=== PATIENT | male | born 1940 | race Caucasian/White ===

== ENCOUNTER 2025-04-25 00:19 | Emergency (ER) | payer MEDICARE, SELFPAY ==
--- OUTSIDE RECORDS SUMMARY | 2025-04-25 00:22 | XMS_ITS | Clinical Summary ---
Author Organization [facility] Address [address] [place] [id number] Care Team Providers Care Supervisor [employer] Name Role Phone Silas Cooper MD Primary Care Provider [phone] Allergies Active Allergy Reactions Criticality Noted Date Comments Sulfa (Sulfonamide Antibiotics) Tongue Swelling High 01/09/2007 closing of throat Medications losartan (COZAAR) 50 mg tabletIndications :Essential hypertension Take 1 Tablet (50 mg) by mouth once daily. 90 Tablet 4 4 Active Xarelto 20 mg tabletIndications :Atrial fibrillation, unspecified type (HC) TAKE ONE TABLET BY MOUTH ONE TIME DAILY with evening meal. 90 Tablet 5 Active Active Problems Problem Noted Date Diagnosed Date Essential hypertension 10/27/2020 Chest pain, unspecified 03/13/2011 Overview (03/13/2011): Colonoscopy 03/2011 polyp repeat in 5 years Colon polyp 03/13/2011 Overview (11/07/2021): Colonoscopy 03/2011 polyp repeat in 5 years Colonoscopy 06/2016 polyp repeat in 5 years Colonoscopy 10/2021 ilial erosion, no polyps, no follow up colonoscopy needed Sensorineural hearing loss, bilateral 09/20/2010 Displacement of lumbar inter vertebral disc without myelopathy 06/14/2008 Encounters Date Type Department Care Team Description 04/24/2025 Nurse Triage [facility] [address] [facility] [place] [address] Silas Cooper MD 01/28/2025 Refill [facility] [address] [place] [address] Silas Cooper MD Refill Request (Xarelto) from Last 3 Months Immunizations Immunization Administration Dates Next Due AMB INFLUENZA IIV3 (AGE 65+ YRS) PF (Flu Clinic Only) 05/21/2019,06/03/2018,05/02/2017 AMB Influenza, IIV3 (Age >=3 years)(Flu Clinic Only) 05/11/2013,04/27/2012,06/01/2010,06/02 Amb Influenza, Inact (High-d ose) (Flu Clinic Only) 05/31/2016,05/10/2014 Amb Influenza, Inactivated A IIV4 (Age 65+ Years) Preserv Free 05/17/2020 COVID-19 vaccine (QingCloud NTZOCKO 30mcg/0.3mL) PF, MDV 10/17/2020,09/26/2020 HepA-HepB (Twinrix) 03/17/2009 Hepatitis A (Adult) 04/22/2005 Inactivated Polio Vaccine 01/16/2012,04/22/2005 Influenza, High-dose Inactivated 05/31/2016,1009/2014,05/10/2014 Influenza, High-dose Quadriv alent Inactivated 04/25/2022,05/23/2021 Influenza, IIV3 (Age 6-35 mos) 04/25/2011 Influenza, IIV3 (Age >=3 years) 05/11/20 13,04/27/2012,04/25/2011,06/01,06/02/2008,06/11/2006,05/28/2005 Influenza, Inactivated IIV3 (Age 65+ Years) Preserv Free 05/02/2017 Meningococcal Vaccine (Menactra) 03/17/2009 Pneumococcal Poly,23-Valent (Pneumovax) 07/17/2006,07/11/2005,04/22/2005 Pneumococcal conj 13-Valent (Prevnar 13) 09/23/2017 Td (Age >=7 Years) 04/22/2005 Td, Preservative Free (age >= 7 Years) 5 Tdap 01/16/2012 Typhoid (injectable) 01/16/2012,03/17/2009 Typhoid (oral) 04/22/2005 Zoster (Shingrix-RZV, recombinant) 01/15/2019, Family History Medical History Relation Name Comments Cancer-prostate Brother 1 Ganga of pros sánchez ca in 60s Asthma Brother 2 Christopher Other Brother 2 Christopher of a resp attack at 82 Stroke Father of a strok e at 89 Heart Disease Mother of 88 of unknown cause Relation Name Status Comments Brother 1 Ganga Brother 2 Christopher Father Mother Social History Tobacco Use Types Packs/Day Years Used Date Smoking Tobacco: Former Cigarettes Q uit: 11/22/1971 Smokeless Tobacco: Never Tobacco Cessation:Counseling Given: No Alcohol Use Standard Drinks/Week Comments Yes 2 (1 standard drink = 0.6 oz pur e alcohol) occassional glass of wine PHQ-2 Answer Date Recorded PHQ-2 TOTAL SCORE 0 03/31/2024 Social Connections Answer Date Recorded Frequency of Communication with Friends and Fami ly Not on file 11/26/2022 Alcohol Use Answer Date Recorded How often do you have a drink containing alcohol ? 3 02/05/2023 How many drinks containing a lcohol do you have on a typical day when you are drinking? 0 02/05/2023 How often do you have five or more drinks on one occasion? 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 Gender Identity Not on file Sexual Orientation Not on file Obstetrics History Last Filed Vital Signs Vital Sign Reading Time Taken Comments Blood Pressure 126/77 03/31/2024 1:20 PM CDT Pulse 49 03/31/2024 1:20 PM CDT Temperature 36.2 C (97.1 F) 11/21/2021 10:45 AM CDT Respiratory Rate 18 09/09/2019 9:56 AM EMULSIFICATION OPERATOR Oxygen Saturation 97% 03/31/2024 1:20 PM CDT Inhaled Oxygen Concentration - - Weight 78.2 kg (172 lb 6.4 oz) 03/31/2024 1:20 P M CDT Height 177.4 cm (5' 9.84) 03/31/2024 1:20 PM CD T Body Mass Index 24.85 03/31/2024 1:20 PM CDT Plan of Treatment Health Maintenance Due Date Last Done Comments Hepatitis B series for 19+ ( 2 of 3 - Hep B Twinrix 3-dose series) 04/14/2009 03/17/2009 RSV vaccine for adults or (1 - 1-dose 75+ series) 11/03/2015 Tetanus booster 01/15/2022 01/16/2012, 04/11, 04/22/2005 BMI (ht and wt on same day) for age 18+ 03/31/2025 03/31/2024, 02/05/2023, 11/21/2021, Additional history exists Depression screening for age 12+ 03/31/2025 03/31/2024, 02/05/2023, 11/21/2021, Additional history exists Medicare Wellness for age 65+ 04/01/2025, 02/05/2023, 11/21/2021, Additional history exists COVID-19 vaccine series ( season) 2025 10/30/2023, 05/30/2023, 12/23/2022, Additional history exists Influenza Vaccine (#1) 2025 , 05/21/2019, 06/03/2018, Additional history exists Pneumococcal series for age 50+ Completed 09/23/2017, 07/17/2006, 07/11/2005, Additional history exists Zoster (shingles) series for age 50+ Completed 01/15/2019, 10/27/2018 Insurance [employer] HB ONLY [place] [id number] MEDICARE PART B HB ONLY [facility] Advance Directives Documents on File Type Date Recorded Patient Bill Of Lading Clerk Expl anation Healthcare Directive 01/04/2016 3:12 PM MINGO, 12/21/2015 Care Teams Supervisor [employer] Relationship Specialty Start Date End Date [place] [address] PCP - General Family Practice 09/04/20
[2025-04-25 00:25] VITALS: BP 170/94; PULSE 83; RESP 18; TEMP 36.6; O2SAT 98; BMI 24.4
[2025-04-25 00:59] VITALS: TEMP 36.6
[2025-04-25] MEDS: ACETAMINOPHEN 500 MG TABLET 1000 MG PO (00:59)
[2025-04-25 01:10] LABS: Hematocrit* 42.8 % (37.0-53.0); Hemoglobin* 15.0 gm/dL (13.5-17.5); Immature Granulocytes Abs Auto 0.01 K/uL (0.00-0.30); Immature Granulocytes Pct Auto 0.2 %; Lymphocytes Absolute Auto 1.06 K/uL (0.90-2.90); Mean Corpuscular HGB Conc 35 gm/dL (32-36); Mean Corpuscular Hemoglobin 32 pg (26-34); Mean Corpuscular Volume 90 fL (80-100); RDW Coefficient of Variation % 12.3 % (11.5-15.5); Red Blood Count* 4.74 m/uL (4.30-5.90); White Blood Count* 5.28 K/uL (4.50-11.00)
[2025-04-25 01:12] LABS: Slide Review Reflex No
--- NOTE | 2025-04-25 01:13 | ED_ITS ---
HPI - General Adult General Chief complaint: Eye Problems Stated complaint: left eye pain Time Seen by Provider: 04/25/25 00:21 Source: patient Mode of arrival: ambulatory Limitations: no limitations History of Present Illness HPI narrative: 84-year-old male presents to the emergency department with a 2 day history of pain around the left eye. He is very vague and nonspecific when I attempt to redirect him on where the pain exactly is in terms of the conjunctival area, the eyeball, high in the eyeball or more so to the orbital area, it still is not clear to me. He says it is located in the left lateral orbital area radiating around the left side of the head, down into the left posterior ear area and even down a little bit into the back of the left head slightly. It is not affected by movement. He denies loss of vision in that eye. There is no drainage or mattering. No trauma or injury. He does not have a foreign body sensation. He does follow with an eye doctor and has a diagnosis of macular degeneration. He has had his ocular pressure checked within the last couple of months, denies that these were abnormal. He did not attempt to be evaluated in urgent care or clinic for the condition. He tried taking 200 mg tablet of ibuprofen x1 about 7 hours ago with no significant improvement in symptoms. No fevers. No prior history of rheumatological disease or inflammatory condition. He reports that he is prone to migraines but this feels very different for him. It is not a headache deep in the head and seems to be more around the eye area. The right eye is not affected. There is no jaw pain or claudication. No dental pain or fever. He has not tried Tylenol. He that vague on his past medical history but knows that he takes both losartan and Xarelto. He is unclear why he takes Xarelto but when I mention common conditions, he thinks he has a diagnosis of atrial fibrillation. It sounds as though his provider referred him for a lot of additional testing regarding the AFib diagnosis but patient declined to do these. Continues to take his losartan as well. Nonsmoker. No recent surgery. ROS is notable for the HEENT and generalized symptoms as above, otherwise notable for fatigue but he is vague about this also. No other neurological changes. Specifically no loss of visual acuity. Nursing team reports with corrective lenses in place left eye is 20/70 visual acuity. Right eye is unable to read. Please note left eye is the affected eye. 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 ?M51.25 - Other intervertebral disc displacement, thoracolumbar region (ICD- 10) Hypertension ?I10 - Essential (primary) hypertension (ICD-10) Surgical History History of cholecystectomy ?Z90.49 - Acquired absence of other specified parts of digestive tract (ICD- 10) History of tonsillectomy ?Z90.89 - Acquired absence of other organs (ICD-10) History of appendectomy ?Z90.49 - Acquired absence of other specified parts of digestive tract (ICD- 10) Social History Smoking Status: Former smoker Second hand tobacco smoke exposure: No How often do you have a drink containing alcohol: never AUDIT-C Alcohol total score: 0 Non-prescribed substance use: denies use Exam Const: Vital Signs, click to edit/add: Vital Signs - 24 hr 04/25/25 00:25 04/25/25 00:59 Temperature 97.8 F 97.8 F Pulse Rate [Right Pulse Oximeter] 83 Respiratory Rate 18 Blood Pressure [Ri ght Upper Arm] 170/94 H Pulse Oximetry 98 Oxygen Delivery Me thod Room Air Documenting provider has reviewed patient's vital signs: yes Common normals: no apparent distress General appearance: well kempt Other: Friendly and cooperative, talkative HENMT: Common normals: normocephalic, TM's normal bilaterally, moist oral mu cous membranes, oropharynx normal and dentition normal Head and scalp: normocephalic Face and sinus: normal facial exam Tympanic membrane: TM's normal bilaterally Mouth: oral and palatal mucosa normal Other: No tenderness with palpation of the TMJ joint. Jaw opens and closes normally. Normal appearing tongue with no necrosis. Palpation along the caodaism and specifically temporal artery area does cause increased pain. I do not appreciate any specific palpable nodularity. Eye: Common normals: PERRL, EOMs intact bilaterally, conjunctivae normal and no scleral icterus Conjunctiva: conjunctiva(e) normal Pupil: PERRL Other: Sclerae are mildly injected on the left but conjunctiva appear normal bilaterally. Palpation of the globes through the closed eyelid does not reveal any suspicion for increased intra-ocular pressures and does not reproduce his pain. Neck & C-Spine: Common normals: full ROM, no lymphadenopathy and no meningeal signs General: normal visual inspection Cervical spine: cervical ROM normal Resp: Common normals: normal respiratory effort and clear to auscultation bilaterally Effort & inspection: able to speak in complete sentences Auscultation: clear to auscultation bilaterally Cardio: Common normals: regular rate, regular rhythm, S1 normal heart sound and S2 normal heart sound Rate: regular rate Rhythm: regular rhythm Heart sounds: S1 normal and S2 normal Extremity: Common normals: normal to inspection and normal capillary refill Neuro: Common normals: moves all extremities, no focal motor deficits and gait normal Meningeal signs: no meningeal signs Speech: speech normal Psych: Appearance: well kempt Activity/motor behavior: appropriate eye contact Attention/concentration: attention grossly intact Memory/cognition: memory grossly intact Insight: insight good Judgement: judgment good Skin: Common normals: no rashes or lesions noted General skin exam: no rashes or lesions noted Course Course ED Course: 84-year-old male with vague periocular facial symptoms and headache with pain on palpation of temporal artery area. No obvious signs of acute glaucoma, ocular infection or focal neurologic change. Does not have visual acuity worsening of affected side. Baseline macular degeneration does make visual assessment a bit difficult. If some concerns that this is presentation for temporal arteritis based on age, palpable tenderness, deviation from his typical baseline. Counseled patient that it is difficult to tell for sure without a biopsy but impaired treatment is recommended due to the risk of progression to vision loss if untreated. Biopsy can be definitive for diagnosis but can have false negatives as well. Indications for which he takes Xarelto are not quite clear to patient but I do recommend that he continue his Xarelto. Will start pr ednisone 60 mg p.o. x1 here in the ED and continue on 60 mg daily for 6 days, then decrease to 40 mg once daily. Patient will need primary care follow-up in a couple of days to check in to make sure that things are improving, make sure that the General surgery referral and biopsy have been arranged. Patient was given contact numbers to start scheduling those himself. He was also given instructions to contact his eye doctor 1st thing in the morning and make an appointment to have his vision and ocular pressures reassessed. We discussed coming back to emergency department with advanced ophthalmological capabilities if he has sudden or severe ocular symptoms. General alarm symptoms otherwise reviewed and written as well. We are going to draw baseline sed rate, CRP and CBC prior to starting treatment that can be used for comparison. These will be drawn and then he will be sent home from the ED with the prednisone and Tylenol and will be given a few tramadol tablets from InStent meds for severe pain. Counseled on use of Benadryl, melatonin or Unisom as an additional sleep aid [id number] if needed. Vital Signs Vital signs: Initial Vital Signs Temperature 97.8 F 04/25/25 00:25 Temperature Source Temporal Artery Scan 04/25/25 00:25 Pulse Rate 83 04/25/25 00:25 Respiratory Rate 18 04/25/25 00:25 Blood Pressure 170/94 H 04/25/25 00:25 Blood Pressure Mean 119 H 04/25/25 00:25 Blood Pressure Position Sitting 04/25/25 00:25 Pulse Oximetry 98 04/25/25 00:25 Oxygen Delivery Method Room Air 04/25/25 00:25 Vital Signs Temperature 97.8 F 04/25/25 00:25 Pulse Rate 83 04/25/25 00:25 Respiratory Rate 18 04/25/25 00:25 Blood Pressure 170/94 H 04/25/25 00:25 Pulse Oximetry 98 04/25/25 00:25 Oxygen Delivery Method Room Air 04/25/25 00:25 Temperature 97.8 F 04/25/25 00:59 Pulse Rate 83 04/25/25 00:25 Respiratory Rate 18 04/25/25 00:25 Blood Pressure 170/94 H 04/25/25 00:25 Pulse Oximetry 98 04/25/25 00:25 Oxygen Delivery Method Room Air 04/25/25 00:25 Medications Administered Medications: Discontinued Medications Generic Name Dose Route Start Last Admin Trade Name Padma PRN Reason Stop Dose Admin Acetaminophen 1,000 mg 04/25/25 00:53 04/25/25 00:59 Acetaminophen 500 Mg Tablet PO 04/25/25 00:54 1,000 mg ONCE ONE Administration Prednisone 60 mg 04/25/25 00:53 04/25/25 00:58 Prednisone 20 Mg Tablet PO 04/25/25 00:54 60 mg ONCE ONE Administration Medical Decision Making Lab Data Lab results reviewed: Yes I reviewed the patient's lab results Lab results narrative: No significant leukocytosis. Sed rate does remain pending. Labs: Lab Results 04/25/25 Range/Units 01:00 WBC 5.28 (4.50-11.00) K/uL RBC 4.74 (4.30-5.90) m/uL Hgb 15.0 (13.5-17.5) gm/dL Hct 42.8 (37.0-53.0) % MCV 90 (80-100) fL MCH 32 (26-34) pg MCHC 35 (32-36) gm/dL RDW Coeff of Marcie 12.3 (11.5-15.5) % Plt Count 183 (140-440) K/uL Neut % (Auto) 68.0 (42.0-72.0) % Lymph % (Auto) 20.1 (20-44) % Wayne % (Auto) 8.5 (0.0-11.0) % Eos % (Auto) 2.8 (0.0-7.0) % Baso % (Auto) 0.4 (0.0-3.0) % Neut # (Auto) 3.59 (1.7-7.0) K/uL Lymph # (Auto) 1.06 (0.90-2.90) K/uL Wayne # (Auto) 0.40 (0.00-0.90) K/UL Eos # (Auto) 0.15 (0.00-0.50) K/uL Baso # (Auto) 0.02 (0.00-0.30) K/uL Abs Immat Gran (auto) 0.01 (0.00-0.30) K/uL Imm/Tot Granulo (auto) 0.2 % C-Reactive Protein < 0.5 L (0.5-1.0) mg/dL Discharge Plan Discharge Clinical Impression: Temporal arteritis Patient Disposition: Home, Self-Care Condition: Stable Instructions: Temporal Arteritis (ED) Additional Instructions: As we discussed, there does not seem to be an intrinsic problem within the eye itself but I cannot [place] the [place]. You will need to call your eye doctor 1st thing in the morning and get your eyes checked to ensure that there is not a deeper problem within the eye itself. Your history is more suggestive of an inflammatory condition called temporal arteritis. This can cause some pain in the eye itself but tends to cause pain in the left side of the head, caodaism and can radiate down towards the jaw and sometimes behind the ear as well. The condition can progress rapidly and eventually lead to permanent vision loss, therefore empiric treatment when the condition is suspected is important, even prior to getting a formal diagnosis. A biopsy is needed to get formal diagnosis, this cannot be performed in the middle of the night on the weekend in a [place] emergency department. You will need to call the clinic in the morning at [phone]. You will need to request an appointment with the general surgery department. Tell them that the diagnosis is for a temporal artery biopsy. If you have difficulty coordinating this, please speak with your primary care doctor and team to help them coordinate this for you. Please make an appointment with them for this week so we can see how your symptoms are improving on the prednisone as well, deciding on how soon we can taper treatment if things are improving or further workup if things are not improving as expected. Remember that the most important part is starting steroid treatment right away. Doses are typically quite high for this condition, 60-100 mg per day. You were given 60 mg tonight, I would like for you to take the medication every afternoon, thereafter. This means that your 1st and 2nd dose will be closer together, but doses up to 100 mg per day are common. Therefore, this will not be too much for your initial start of treatment. It is important to aggressively treat the condition initially. I would like for you to start 60 mg per day for the next 5 days, then decrease to 40 mg per day. Your primary care or specialty doctor for this condition will make additional recommendations. I would recommend that you not take the medication within 4 hours of bedtime as it can worsen insomnia. It is important that you come to an emergency room right away if you have sudden vision loss. Ideally, you would want to go to an emergency room that has an audiovisual production specialist. These would be tertiary care centers like [facility], [facility] or [facility]. Please take a proper adult dose of pain medication for this condition. You tell me that you take Xarelto, a blood thinner. Because of this, you really should be using Tylenol also known as acetaminophen rather than ibuprofen also known as Advil for any pain conditions. Proper dose of Tylenol as 1000 mg every 6 hours. In limited amounts, you may use ibuprofen but a proper adult doses 600 mg every 6 hours. I am not surprised that you did not get benefit from 200 mg once daily. Remember that Tylenol does not interact with her blood thinners and should be your 1st line treatment for pain, fever and other similar conditions. When you get home, take 1 tablet of the tramadol that was prescribed to you from the vending machine. This is a stronger pain medicine that will hopefully help you sleep while we give the prednisone some time to kick in. For most people, the prednisone does start to help within 24 hours. It is okay to use [id number] Benadryl, Unisom or melatonin to help you sleep as well. This will not impaired the diagnosis or interact poorly with your other medications. It is important that you understand that you were not given definitive care in the emergency department, as all of these services are not available in the middle of the night on the weekend. Coordination of the biopsy and follow-up is critical for treatment. Please contact your primary care provider if you have difficulty doing this. Activity Level: No Restrictions Discharge Diet: Regular Prescriptions: New prednisone 20 mg tablet 40 - 60 mg PO DAILY Qty: 25 0RF Rx Instructions: 3 pills by mouth daily x5 days, then 2 pills daily for 5 days. Follow Up/Referrals: Silas Cooper MD [Primary Care Provider, Family Practice] Stand Alone Forms: [employer] Info Instructions
[2025-04-25 01:51] VITALS: BP 168/84; PULSE 79; RESP 18; TEMP 36.6; O2SAT 98
[2025-04-25 01:59] LABS: Erythrocyte SedimentationRate* 3 mm/hr (2-15)
[2025-04-25 02:09] VITALS: BP 168/84; PULSE 79; RESP 18; TEMP 36.6
== END 2025-04-25 02:10 | disposition home or self-care (01) ==
LOC: ED 01:03
PROVIDERS: Emergency Provider Family Medicine; PCP Family Medicine
DX: M31.6 Other giant cell arteritis (principal)
CPT/HCPCS: 36415; 85025; 85651; 86140; 99283; A9270; J7512

== ENCOUNTER 2025-05-10 09:13 | Day surgery (SDC) | payer MEDICARE, SELFPAY ==
[2025-05-10] MEDS: LACTATED RINGERS 1000 ML 1,000 ML 100 ML IV (09:20)
[2025-05-10 09:36] VITALS: BMI 24.7
--- NOTE | 2025-05-10 09:36 | W.PM.H&PU ---
History & Physical Update History & Physical Update H&P Reviewed and patient assessed: No changes noted
--- NOTE | 2025-05-10 09:37 | P.GSOP_ITS ---
Operative Note Date of procedure: 05/10/25 Pre-op diagnosis: 1. Headache and left eye temper visual loss suspicious for temporal arteritis. Post-op diagnosis: Same Type of Procedure: 1. Left temporal artery biopsy. Indications: 84-year-old male was seen in clinic with an episode of left headache. Patient's headache was so severe that he came into the emergency room. While in the emergency room, patient had tenderness to palpation in the left temporal area. Patient also described an episode of left eye vision loss for about 3 seconds. The vision then came back. Upon patient's workup he was found to have normal ESR. He was placed on Prednisone due to concern for temporal arteritis, and was referred to our clinic for evaluation of temporal artery biopsy. On clinical exam patient had no further tenderness to palpation in the left temporal area. His headache has improved. Discussion was held with the patient regarding con cerns for temporal arteritis even though his ESR was normal. Temporal artery biopsy was discussed and patient elected to proceed with the procedure. The procedure was discussed in detail. The risks associated procedure including infection, bleeding, and negative biopsy results were all discussed with the patient, and he agreed to proceed. Procedure Description: After discussing the risks and benefits of the procedure, the patient signed informed consent.? The operative site was marked and the patient was brought to the operating room and placed on the operating table in supine position.? Care was taken to pad the patient's pressure points.?? The patient was then sedated by anesthesia.?? The operative site was then prepped and draped in the usual sterile fashion.? A time-out was then performed. The left superficial temporal artery pulse was palpated and the course of the artery was marked with a marking pen. A mixture of 1% Lidocaine and 0.25% Marcaine with Epinephrine was injected at the site of the incision and a vertical skin incision was made with a scalpel. Subcutaneous tissues were dissected with tenotomy scissors. The use of cautery was minimized throughout the case. Superficial temporal fascia was opened and the course of the superficial temporal artery was visualized. The pulse of this left temporal artery was clearly visualized. Tissues around the artery were dissected off. There were multiple small arterial branches and those were controlled with cautery and small clips. When over 2 cm of the temporal artery was exposed, its proximal and distal ends were tied with 3-0 vicryl ties and the exposed segment of the left temporal artery was excised. The specimen was passed off the field and sent to pathology. Vascular clips were also placed on divided ends of the artery just proximal and distal to the Vicryl tie. Surgical field was examined for bleeding and there was none. Additional local anesthetic was injected at the surgical site. Subdermal layer was re-approximated with interrupted 3-0 vicryl stitches. Skin was closed with a running 4-0 monocryl stitch. Dermabond was applied over the incision. Patient tolerated the procedure well and was transferred to same day surgery in stable condition. Sterile dressings were then applied. ? Findings: The artery was identified and pulse was visualized. Anesthesia: MAC and local Surgeon: Harleen Escobar MD Estimated blood loss (mL): 5 Additional Specimen Information: 1. Left temporal artery. Condition: stable Disposition: same day
[2025-05-10 09:40] VITALS: BP 128/93; PULSE 65; RESP 16; TEMP 36.4; O2SAT 99
[2025-05-10] MEDS: SODIUM CHLORIDE 0.9 % (FLUSH) 10 ML SYRINGE IVF (09:42)
[2025-05-10] MEDS: BUPIVACAINE 0.25% 30 ML 10 ML INJECTION (11:33)
[2025-05-10] MEDS: LIDOCAINE 1%-EPI 1:100,000 10 ML INFILTRATI (11:33)
[2025-05-10 12:15] VITALS: BP 122/99; PULSE 66; RESP 14; TEMP 36.4; O2SAT 97
--- NOTE | 2025-05-10 12:18 | P.ANES_ITS ---
Anesthesia Charges Start Date/Time Anesthesia Start Date: 05/10/25 Anesthesia Start Time: 11:16 Stop Date/Time Anesthesia Stop Date: 05/10/25 Anesthesia Stop Time: 12:16 Summary Extremes of Age - Over 70 or under 1: MDA Coding CPT Codes CPT Codes: ANESTH NECK VESSEL SURGERY - 44943 ([id number]) P2 - PATIENT W/MILD SYST DISEASE, QK - INFUSION THERAPY NURSE 2-4 CNCRNT ANES PROC, QX - FOAM MOLDER SVC W/ MD MED DIRECTION Additional Codes: Summary - Extremes of Age - Over 70 or under 1: MDA ([id number])
--- NOTE | 2025-05-10 12:18 | W.ANESCHARGE ---
Anesthesia Charges Start Date/Time Anesthesia Start Date: 05/10/25 Anesthesia Start Time: 11:16 Stop Date/Time Anesthesia Stop Date: 05/10/25 Anesthesia Stop Time: 12:16 Summary Extremes of Age - Over 70 or under 1: MDA Coding CPT Codes CPT Codes: ANESTH NECK VESSEL SURGERY - 91250 ([id number]) P2 - PATIENT W/MILD SYST DISEASE, QK - MATHEMATICS INSTRUCTOR 2-4 CNCRNT ANES PROC, QX - RELIGIOUS EDUCATION TEACHER SVC W/ MD MED DIRECTION Additional Codes: Summary - Extremes of Age - Over 70 or under 1: MDA ([id number])
[2025-05-10 12:30] VITALS: BP 131/92; PULSE 62; RESP 16; O2SAT 98
[2025-05-10 12:45] VITALS: BP 132/90; PULSE 59; RESP 16; O2SAT 97
[2025-05-10 13:00] VITALS: BP 131/88; PULSE 62; RESP 16; TEMP 36.2; O2SAT 98
--- NOTE | 2025-05-10 13:20 | P.ANES_ITS ---
Anesthesia Charges Start Date/Time Anesthesia Start Date: 05/10/25 Anesthesia Start Time: 11:16 Stop Date/Time Anesthesia Stop Date: 05/10/25 Anesthesia Stop Time: 12:16 Summary Extremes of Age - Over 70 or under 1: INVESTIGATIVE REPORTER Coding CPT Codes CPT Codes: ANESTH NECK VESSEL SURGERY - 58843 ([id number]) P2 - PATIENT W/MILD SYST DISEASE, QK - RADIOLOGY PHYSICIAN ASSISTANT 2-4 CNCRNT ANES PROC, QX - INVESTIGATIVE REPORTER SVC W/ MD MED DIRECTION Additional Codes: Summary - Extremes of Age - Over 70 or under 1: INVESTIGATIVE REPORTER ([id number])
--- NOTE | 2025-05-10 13:20 | W.ANESCHARGE ---
Anesthesia Charges Start Date/Time Anesthesia Start Date: 05/10/25 Anesthesia Start Time: 11:16 Stop Date/Time Anesthesia Stop Date: 05/10/25 Anesthesia Stop Time: 12:16 Summary Extremes of Age - Over 70 or under 1: SECURITY RESEARCHER Coding CPT Codes CPT Codes: ANESTH NECK VESSEL SURGERY - 14677 ([id number]) P2 - PATIENT W/MILD SYST DISEASE, QK - PROFESSOR OF RELIGION 2-4 CNCRNT ANES PROC, QX - SECURITY RESEARCHER SVC W/ MD MED DIRECTION Additional Codes: Summary - Extremes of Age - Over 70 or under 1: SECURITY RESEARCHER ([id number])
== END 2025-05-10 13:27 | disposition home or self-care (01) ==
PROVIDERS: PCP Family Medicine; Visit Provider Surgery
PROC: (CPT 37609; principal; 2025-05-10 10:30)
DX: R51.9 Headache, unspecified (principal); H54.62 Unqualified visual loss, left eye, normal vision right eye
CPT/HCPCS: 37609; 00352; 88305; 99100; J0665; J0690; J2704; J3490; J7120